=== PATIENT | male | born 1990 | race Caucasian/White ===

== ENCOUNTER 2024-12-19 11:52 | Emergency (ER) | payer OTHER ==
[~2024-12-19] VITALS: Ht 182.9 cm; Wt 126.8 kg
[2024-12-19 12:19] VITALS: BP 123/86; PULSE 60; RESP 18; TEMP 97.8; O2SAT 98
--- NOTE | 2024-12-19 13:55 | Physician Documentation ---
History of Present Illness ~ Chief Complaint: Back Pain Stated Complaint: LOWER BACK PAIN Time Seen by MD: 13:49 HPI Patient is seen today with complaints of low back pain acute on chronic low back pain. Patient states he felt a pop in his back and now has pain radiating down his left leg anteriorly and posteriorly. Patient denies any saddle anesthesia or changes in bowel or bladder habits. Patient has no other concern or complaint at this time Medication Reconciliation Allergies: Coded Allergies: No Known Allergies (Unverified , 12/19/24) Review of Systems Constitutional: Denies: chills, fever, weakness Eyes: Denies: pain, blurred vision ENT: Denies: ear pain, nose pain, throat pain, mouth pain Respiratory: Denies: cough, shortness of breath Cardiovascular: Denies: chest pain, palpitations Gastrointestinal: Denies: abdominal pain, nausea, vomiting Genitourinary: Denies: burning, dysuria Male Genitalia: Denies: penile discharge, testicular pain Neurological: Denies: headache, dizziness Musculoskeletal: Denies: pain, swelling Integumentary: Denies: rash, lesions Allergic/Immunologic: Denies: hives, itching Hematologic/Lymphatic: Denies: no symptoms reported Psychiatric: Denies: depression, anxiety Physical Exam Physical Exam Vital Signs: Temperature: 97.8, Source: Oral, Heart Rate: 60, Respiratory Rate: 18, BP: 123/86, Pulse Oximetry: 98, Weight: 126.800 Oxygen Flow Rate: 0 Physical Exam General: Awake and Alert, no acute distress. HEENT: Conjunctiva pink, Sclera clear, Mucus Membranes moist. Neck: Supple without masses and tenderness. Resp: Unlabored. Lungs clear to auscultation bilaterally. Heart: Regular Rate and rhythm, normal S1 and S2 without murmur, rub or gallop. Musculoskeletal: Patient on exam does have significant decreased range of motion of the lumbar spine in all planes of motion. Patient is neurovascularly intact distally. Motor function and strength intact distally. The patient does have significant tenderness to palpation of the left paraspinal muscles of the lumbar spine with muscle spasm appreciable on exam. Extremities: No cyanosis,clubbing or edema. Skin: Warm and Dry. Progress Results/Orders Results/Orders Vital Signs 12/19/24 12:19 Temp 97.8 Pulse 60 Resp 18 B/P (MAP) 123/86 Pulse Ox 98 O2 Flow Rate 0 Medical Decision Making Findings Patient is seen today with complaints of low back pain acute on chronic low back pain. Patient states he felt a pop in his back and now has pain radiating down his left leg anteriorly and posteriorly. Patient denies any saddle anesthesia or changes in bowel or bladder habits. Patient has no other concern or complaint at this time. Patient was given Toradol 30 mg IM in the ED today along with prescription for meloxicam 15 mg one tab once a day to be taken with food. Patient declined muscle relaxer at this time due to patient taking CDL. I did send over a muscle relaxer for patient to take over the next few days. Patient will follow up with primary care for referral for MRI of his lumbar spine and will return to ED with any worsening, concerning or changing symptoms Departure Disposition: 01 HOME / SELF CARE / HOMELESS Impression: Primary Impression: Lumbar sprain Qualified Codes: S33.5XXA - Sprain of ligaments of lumbar spine, initial encounter Additional Impression: Acute exacerbation of chronic low back pain Condition: Stable Discharge Instructions: Sciatica, Acute Back Pain, Adult, Chronic Pain, Adult Additional Instructions: Patient was given Toradol 30 mg IM in the ED today along with prescription for meloxicam 15 mg one tab once a day to be taken with food. Patient declined muscle relaxer at this time due to patient taking CDL. I did send over a muscle relaxer for patient to take over the next few days. Patient will follow up with primary care for referral for MRI of his lumbar spine and will return to ED with any worsening, concerning or changing symptoms Referrals: NO PRIMARY CARE PROVIDER (PCP) Prescriptions Meloxicam (Meloxicam) 15 Mg Tablet 1 TAB PO DAILY for 30 Days, #30 TAB 0 Refills Prov: AMIRA VAN 12/19/24 Signature Scribe Signature: No scribe Attestation: No scribe AMIRA VAN PAC Dec 19, 2024 13:55
[2024-12-19] MEDS ORDERED: MELO-102 PO (13:57)
[2024-12-19] MEDS: ketorolac trometh 30MG/ML vial 30 MG/ML VIAL IM STA (14:24)
== END 2024-12-19 14:30 | disposition home or self-care (01) ==
LOC: ER 11:53
DX: S33.5XXA Sprain of ligaments of lumbar spine, initial encounter (principal); G89.29 Other chronic pain; X58.XXXA Exposure to other specified factors, initial encounter; Y93.89 Activity, other specified; Y92.89 Other specified places as the place of occurrence of the external cause; Y99.8 Other external cause status
CPT/HCPCS: 96372; 99283; J1885